=== PATIENT | female | born 1975 | race Caucasian/White ===

== ENCOUNTER → 2024-01-07 07:26 | Outpatient (REF) | payer OTHER, SELFPAY | LOC: HWWDC 07:26 | PROVIDERS: ATTENDING PHYSICIAN Nurse Practitioner Adult Health | DX: Z12.31 Encounter for screening mammogram for malignant neoplasm of breast (principal) | CPT/HCPCS: 77063; 77067 ==

== ENCOUNTER → 2024-07-08 09:09 | Outpatient (REF) | payer OTHER, SELFPAY | LOC: RAD 09:09 | PROVIDERS: ATTENDING PHYSICIAN Nurse Practitioner Adult Health | DX: R10.32 Left lower quadrant pain (principal); R10.9 Unspecified abdominal pain; K62.5 Hemorrhage of anus and rectum | CPT/HCPCS: 74177; Q9967 ==